=== PATIENT | female | born 1985 | race Caucasian/White ===

== ENCOUNTER → 2016-09-13 | Outpatient (CLI) | payer OTHER ==
--- NOTE | ~2016-09-13 | CR126 ---
[facility] A Service of [facility] & [facility] RADIOLOGY TEXT RESULTS PATIENT: SINA BILL LOCATION: [facility] [employer] [facility] : [id number] UNIT #: [id number] AGE: [address]: Elissa Rizvi DPM SEX: F ORDER DR: [id number] [facility] [address] [facility] [address]. [place], [place] [address] [id number] O MR#: [id number] Acc #: [id number] NAME: SINA BILL : 1985 SEX: F STUDY DATE/TIME: 09/13/2016 14:55 UNIT: [facility] ROOM: STUDY DESCRIPTION: CR Foot Complete Min 3 View Lt Attending Physician: Willy Bean Referring Physician: Willy Bean Ordering Physician: Willy Bean Primary Care Physician: Radha Rios M.D. MEDICAL IMAGING REPORT This report is preliminary unless electronic signature is present EXAM Left foot 3 views, 09/13/2016 HISTORY Foot pain and numbness for 1 month. FINDINGS The tarsal, metatarsal, and phalangeal elements are all anatomically normal in position and alignment. There are no articular defects. No fractures or radiopaque foreign bodies in the soft tissues are apparent. IMPRESSION Normal foot. Dictated by... César Wilkins M.D. THIS IS AN ELECTRONICALLY VERIFIED REPORT César Wilkins M.D. at 09/14/2016 3:52 PM DFToya/león TD: 09/13/2016 23:53 JOB #: [id number] MEDICAL IMAGING REPORT COPY
== END | disposition home or self-care (01) ==
LOC: CRAD 14:22
DX: M20.22 Hallux rigidus, left foot (principal)
CPT/HCPCS: 73630